=== PATIENT | male | born 1945 | race Caucasian/White ===

== ENCOUNTER 2024-12-07 16:05 | Emergency (ER) | payer MEDICARE, SELFPAY ==
[2024-12-07 16:54] VITALS: BP 141/78
--- NOTE | 2024-12-07 18:43 | ED.GENMED ---
History of Present Illness
General
Chief Complaint: Fall
Source: patient
Exam Limitations: none
Time Seen by Provider: 12/07/24 18:36
History of Present Illness
History of Present Illness:
See MDM
Past History
Past History
ED Past Medical History: HTN, Hypercholesterolemia, NIDDM and Other (UTI)
ED Past Surgical History: Orthopedic (Left hip replacement. Bilateral knee replacement, Back surgery)
Social History
Tobacco: Non-smoker
Alcohol: Occasional
Personal:
Living: alone
Phy Exam
Physical Exam
Physical Exam:
See MDM
Course
Orders/Labs/Results
Orders:
Orders
12/07/24 16:[address] [CT Head W/o Iv Contrast] Urgent
Comment:
Reason For Exam: fall hit head on dryer
Vital Signs
Initial and Last Documented VS:
Initial Vital Signs
Temp Pulse Resp BP Pulse Ox
98.9 F 80 18 141/78 98
12/07/24 16:54 12/07/24 16:54 12/07/24 16:54 12/07/24 16:54 12/07/24 16:54
Last Documented Vital Signs
Temp Pulse Resp BP Pulse Ox
98.9 F 80 18 141/78 98
12/07/24 16:54 12/07/24 16:54 12/07/24 16:54 12/07/24 16:54 12/07/24 16:54
Procedures
Laceration Closure
Right Anterior Lateral Eye brow:
Status of Wound: clean
Size of Wound in cm: 3
Description of Wound Edges: sharp
Preparation: cleaned with soap & water
Revision/Debridement: routine- no revision
Wound exploration: explored to base- no FB
Type of Closure: Dermabond-skin glue
MDM/Problems Addressed
Differential Diagnosis Includes:
HPI and [facility] Narrative:
79-year-old male presenting for evaluation of head injury. Patient was getting close out of the dryer. He lost his balance and fell forward hitting his head on the ground. He used his life alert necklace in his daughter came and found him on the
ground. He was sent in for evaluation. CT head was done prior to my evaluation indicating no acute bleed. On my exam, he is sitting in bed comfortably. He is a small superficial laceration above his right eyebrow. It was cleaned and Dermabond
was placed. He noted an abrasion to his right knee where he had a prior knee replacement. There is no tenderness on exam. He is moving without difficulty. I did offer an x-ray but indicated that it is not clinically relevant. Patient agrees and
declined the x-ray. He states his tetanus is up-to-date
Physical exam
General: Well appearing and non-toxic
HEENT: protecting airway. Superficial 3 cm laceration above right eyebrow. EOMI
Neck: supple
CV: No evidence of cyanosis
Resp: No accessory muscle use
Abd: Non-distended
Extremities: Small abrasion to anterior right knee without effusion. Range of motion intact
Neuro: alert
Psych: Normal affect
Skin: Intact
Problems Addressed including Acute and Chronic Conditions affecting care:
1. Head injury
Acuity: acute
Prognosis: stable
Details: CT head negative. Dermabond placed on superficial laceration
Differential Diagnosis (but not limited to): Laceration, abrasion, concussion, intracranial hemorrhage
Testing considered: Knee x-ray
Drug therapy (if applicable): OTC meds, please see d/c instruction regarding Rx drugs
Amount and/or Complexity of Data Reviewed
Clinical info obtained from: Patient and daughter
External data reviewed: N/A
Labs I independently reviewed (but not limited to): N/A
Radiology: The CT scan was personally and independently reviewed. In addition, official CT report reviewed.
Pulse Ox: not hypoxic
EKG independently reviewed: N/A
Youth Manager: N/A
Critical Care: N/A
Risk of Complication:
Social Determinants of health: Good social support
Discussed with other providers: N/A
Escalation of Care includes Admit/Obs: After being observed in the Emergency Department, pt stable for discharge.
Occasional wrong word or 'sound a like' substitutions may have occurred due to the inherent limitations of voice recognition software. Read the chart carefully and recognize, using context, where substitutions have occurred.
*Critical Care Note
Total Time (30-74mins, 75-104mins- exclusive of procedures): Not Applicable
ED Attending Note
-
Portions of this chart may have been created with voice recognition software.� Occasional wrong word or��sound alike� substitutions may have occurred due to the inherent limitations of voice recognition software.
Discharge Plan
Departure
Patient Disposition: Home (Routine Discharge)
Date of Disposition: 12/07/24
Time of Disposition: 18:44
Patient with high blood pressure during this ER visit?: No
Discharge Problem:
Head injury
Instructions: Laceration Repair With Glue (DC), Head Injury in Adults (DC)
Prescriptions:
No Action
multivitamin Tablet
1 tab PO DAILY
sertraline [Zoloft] 100 mg Tablet
150 mg PO DAILY
amlodipine [Norvasc] 5 mg Tablet
5 mg PO DAILY
allopurinol 100 mg Tablet
100 mg PO DAILY
pantoprazole [Protonix] 20 mg Tablet,Delayed Release (Dr/Ec)
20 mg PO DAILY
tamsulosin [Flomax] 0.4 mg Capsule
0.4 mg PO DAILY
metformin 1,000 mg Tablet
1,000 mg PO QPM
benazepril 20 mg Tablet
20 mg PO QPM
pravastatin 20 mg Tablet
20 mg PO QPM
nortriptyline 10 mg Capsule
20 mg PO QPM
finasteride 5 mg Tablet
5 mg PO QPM
pioglitazone 30 mg Tablet
30 mg PO QPM
melatonin 10 mg Tablet
10 mg PO HS
bacitracin 500 unit/gram ointment
1 applic topical QID 7 Days Qty: 30 0RF
Activity Restrictions/Additional Instructions:
Please return for any worsening symptoms.
You may return at any time if you have further concerns.
Please follow up with your doctor at the first available appointment, preferably this week.
Your wound was fixed with derma-branham. This is a special glue that holds a wound closed similar to stitches. This type of wound closure will eventually fall off by itself and does not need to be removed. You may wash the area very gently, but do not
scrub or pick at the glue. Watch for signs of infection: fever over 100.5', increasing pain, red streaks around wound, swelling, drainage of pus, or bad smell. If any of these happen, return to ED promptly. All wounds may scar, however you may
reduce the appearance of scarring by avoiding sun exposure to the scar and applying skin moisturizer with spf protection to the scar once the wound is healed.
Thank you for choosing [facility].
Interventions
Interventions:
*Risk Screen - Suicide Last Done: 12/07/24 16:54
*General Assessment Last Done: 12/07/24 16:54
*Neglect/Abuse Screening Last Done: 12/07/24 16:54
*ED- Fall Risk Assessment Last Done: 12/07/24 16:54
*ED COVID-19 Vaccine History Last Done: 12/07/24 16:54
Discharge Date and Time
Print Language: GERMAN
== END 2024-12-07 19:13 | disposition home or self-care (01) ==
LOC: EMR 16:05
PROVIDERS: EMERGENCY PHYSICIAN Student in an Organized Health Care Education/Training Program
DX: S09.90XA Unspecified injury of head, initial encounter (principal); W19.XXXA Unspecified fall, initial encounter; I10 Essential (primary) hypertension; E78.00 Pure hypercholesterolemia, unspecified; E11.9 Type 2 diabetes mellitus without complications; Z87.440 Personal history of urinary (tract) infections; Z96.642 Presence of left artificial hip joint; Z96.653 Presence of artificial knee joint, bilateral
CPT/HCPCS: 99284; 12013; 70450

== ENCOUNTER 2025-04-12 06:19 | Day surgery (SDC) | payer MEDICARE, SELFPAY ==
[2025-04-12 07:58] LABS: Glucose - Point of Care 260 mg/dl (70-99)
== END 2025-04-12 10:23 | disposition home or self-care (01) ==
LOC: GI 06:19
PROVIDERS: ATTENDING PHYSICIAN Internal Medicine Gastroenterology; FAMILY PHYSICIAN Family Medicine
DX: D12.2 Benign neoplasm of ascending colon (principal); D12.3 Benign neoplasm of transverse colon; R63.4 Abnormal weight loss; K57.30 Diverticulosis of large intestine without perforation or abscess without bleeding; D17.9 Benign lipomatous neoplasm, unspecified; K64.9 Unspecified hemorrhoids
CPT/HCPCS: 45385; 45380; 45381; 82962; 88305

== ENCOUNTER → 2025-05-10 07:37 | Outpatient (REF) | payer MEDICARE, SELFPAY | LOC: RAD 07:37 | PROVIDERS: ATTENDING PHYSICIAN Internal Medicine Gastroenterology; FAMILY PHYSICIAN Family Medicine | DX: R19.5 Other fecal abnormalities (principal) | CPT/HCPCS: 74177; Q9967 ==

== ENCOUNTER 2025-05-28 15:25 | Inpatient (IN) | payer MEDICARE, SELFPAY ==
[2025-05-28] VITALS (7 sets, daily range): BP systolic 95–163; BP diastolic 64–92; BMI 34.3
[2025-05-28 11:15] LABS: Hematocrit 37.5 % (39.0-52.0); Hemoglobin 11.9 g/dL (13.0-18.0); Mean Corp Hgb Conc. 31.7 g/dL (33.0-37.0); Mean Corpuscular Volume 97.7 fL (80.0-94.0); Nucleated Red Blood Cells % 0 % (-); Platelet Count 248 10^3/uL (130-400); Red Cell Dist. Width 14.1 % (11.5-14.5)
[2025-05-28 11:28] LABS: INR 1.04; PT 13.9 Sec (11.4-14.6)
[2025-05-28 11:29] LABS: APTT 36.2 Sec (23.4-35.0)
[2025-05-28 11:49] LABS: ALT (SGPT) 22 U/L (0-50); AST (SGOT) 24 U/L (17-59); Albumin 4.2 g/dl (3.5-5.0); Alkaline Phosphatase 80 U/L (38-126); Blood Urea Nitrogen 22 mg/dl (9-20); Calcium 10.0 mg/dl (8.4-10.2); Carbon Dioxide 22 mmol/L (22-30); Chloride 106 mmol/L (98-107); Glucose 315 mg/dl (70-99); Potassium 5.2 mmol/L (3.5-5.1); Sodium 136 mmol/L (135-145); Total Protein 7.2 g/dl (6.3-8.2); eGFR > 60.00
--- NOTE | 2025-05-28 12:13 | ED.GENMED ---
History of Present Illness
General
Chief Complaint: Rectal Bleeding
Source: patient
Exam Limitations: none
Time Seen by Provider: 05/28/25 11:45
Nursing documentation reviewed up to this point in time: agreed with
History of Present Illness
History of Present Illness:
Patient presents to ED for evaluation after multiple episodes of dark red bowel movements over the past 24 hours. Denies fever or chills. Denies abdominal pain. Denies nausea or vomiting. Denies trauma. Patient does not take any blood thinning
medications daily. However, patient does take Advil intermittently secondary to arthritis. Denies previous history of similar symptoms. Denies dizziness or weakness. Denies shortness of breath.
Past History
Past History
ED Past Medical History: HTN, Hypercholesterolemia, NIDDM and Other (UTI)
ED Past Surgical History: Orthopedic (Left hip replacement. Bilateral knee replacement, Back surgery)
Social History
Tobacco: Non-smoker
Alcohol: Occasional
Personal:
Living: alone
Review of Systems
Review of Systems
Allergies reviewed?: Yes
All Other Systems: ROS reviewed and negative except as documented in HPI and ROS
Constitutional: Reports no symptoms; Denies fever
Respiratory: Reports no symptoms
Cardiac: Reports no symptoms
ABD/GI: Reports bloody stools; Denies abdominal pain or vomiting
Musculoskeletal: Reports no symptoms
Skin: Reports no symptoms
Neurological: Reports no symptoms
Phy Exam
Physical Exam
Physical Exam:
Physical Exam
General: no apparent distress, not acutely ill. afebrile
Head: nc/at. eomi
Neck: supple. no meningeal signs.
Heart: s1/s2 regular rate and rhythm
Lungs: no acute respiratory distress. clear bilaterally
Abdomen: normal bowel sounds. not tender. Rectal exam: maroon stool, grossly heme positive
Neuro: alert and oriented. no focal neurological deficits
Skin: no rash
Psychiatric: well kept. interactive and cooperative
Extremities: no edema. no calf tenderness.
Course
Orders/Labs/Results
Orders:
Orders
05/28/25 Lunch
Clear Liquid
Clear Liquids: No red liquids
Comment: small amounts of liquids
Clear Liquid
05/28/25 10:44
Cardiac Monitoring- Treatment ONCE
IV Insert/Care/Rem.- Treatment PRN
O2 Therapy [RESP] Urgent
Titrate/Wean O2 to maintain O2 sat greater than (%): 93
Special Instructions: MAINTAIN CONTINOUS O2 SATS > OR = 93%
Pulse Ox/spot Check [RESP] Urgent
Quantity: 1
Special Instructions: ON ROOM AIR
05/28/25 10:59
Type+Screen Urgent
Complete Blood Count/With Diff Urgent
Comprehensive Metabolic Panel Urgent
PTT Urgent
Prothrombin Time Urgent
05/28/25 12:22
0.9% Sodium Chloride 500 ml [Nss] 500 ml IV BOLUS
Pantoprazole [Protonix IV] 40 mg IV NOW STA
05/28/25 14:35
Code Status As Directed
Resuscitation Status: Limited DNR
Limited DNR: -No intubation
Bisacodyl [Dulcolax] 10 mg RECTAL [id number] PRN
Docusate W/Senna [Senokot-S] 1 tablet PO BIDPRN PRN
Polyethylene Glycol Powder [Miralax] 17 grams PO DAILYPRN PRN
Activity As Directed
Activity Level: Out of Bed-Early Mobility
Vital Signs As Directed
Frequency: Per unit guidelines
05/28/25 14:36
Pneumatic Compression Sleeves As Directed
Type: Knee high
DX Deep Vein Thrombosis Video Routine
05/28/25 14:38
Admit Patient As Directed
Co-Sign Provider:
Level of Care: Inpatient admission
Assign to:: Medical/Surgical
Physician / Group: Hospitalists
Diagnosis: rectal bleeding
Reason for Hospitalization: GI bleed
Expected length of stay greater than two midnights?: Yes
ELOS- Estimated Length of Stay in days: 4
I certify the patient meets the requirements for IP care: Yes
Acetaminophen [Tylenol] 650 mg PO Q4HPRN PRN
05/28/25 14:41
PRN Pain Medication Management As Directed
May give lesser potent ordered pain med per pt: Yes
preference::
Protocol:: Medication orders for pain may be administered in a
manner that supports deferring to patient preference
when the pt is:
- Requesting an ordered lesser potent pain medication.
Least to most potent pain medications are defined
as: acetaminophen < NSAID < tramadol < opioids
(morphine, oxycodone, hydromorphone).
- Requesting a lesser dose of the same medication IF
ORDERED.
- Requesting a less intrusive route of administration
if both routes are prescribed by the provider (PO <
IV).
05/28/25 20:00
0.9% Sodium Chloride [Nss (Preservative Free)] 10 ml IV BID
Pantoprazole [Protonix IV] 40 mg IV BID
05/29/25 Breakfast
NPO
Allow oral meds: Yes
Allow clear liquids: 4hrs prior to procedure
NPO for procedure after (time): midnight for GI Procedure tomorrow
Comment: may have unrestricted clear liquids up to 4 hrs prior to scheduled proc
Basic Metabolic Panel IN AM
Complete Blood Count/No Diff IN AM
05/29/25 08:00
Surgical Procedure As Directed
Surgical Procedure: EGD 05/29
Abnormal Lab Results
05/28/25
10:59
RBC 3.84 L 10^6/uL
(4.70-6.10)
Hgb 11.9 L g/dL
(13.0-18.0)
Hct 37.5 L %
(39.0-52.0)
MCV 97.7 H fL
(80.0-94.0)
MCHC 31.7 L g/dL
(33.0-37.0)
Neutrophils % 75.4 H %
(42.2-75.2)
Lymphocytes % 14.8 L %
(20.5-51.1)
APTT 36.2 H Sec
(23.4-35.0)
Potassium 5.2 H mmol/L
(3.5-5.1)
BUN 22 H mg/dl
(9-20)
Glucose 315 H mg/dl
(70-99)
05/28/25 10:59
05/28/25 10:59
Vital Signs
Initial and Last Documented VS:
Initial Vital Signs
Temp Pulse Resp BP Pulse Ox
98.3 F 93 18 163/92 99
05/28/25 10:40 05/28/25 10:40 05/28/25 10:40 05/28/25 10:40 05/28/25 10:40
Last Documented Vital Signs
Temp Pulse Resp BP Pulse Ox
98.3 F 74 17 95/83 98
05/28/25 10:40 05/28/25 13:15 05/28/25 13:15 05/28/25 13:00 05/28/25 12:15
MDM/Problems Addressed
MDM/Problems Addressed:
H/H noted. Protonix given.
outbound call center representative GI physician () notified via [employer]
Transfusion consent on the chart
*Pulse Oximetry
SaO2: 99
Oxygen Mode of Delivery: Room air
Patient hypoxic: no
*Critical Care Note
Total Time (30-74mins, 75-104mins- exclusive of procedures): Not Applicable
ED Attending Note
-
Portions of this chart may have been created with voice recognition software.� Occasional wrong word or��sound alike� substitutions may have occurred due to the inherent limitations of voice recognition software.
Discharge Plan
Departure
Patient Disposition: Admit
Date of Disposition: 05/28/25
Time of Disposition: 12:25
Presentation/result/management discussed w/ accepting MD/DO: Hospitalist
Discharge Problem:
GI bleed
Interventions
Interventions:
*Risk Screen - Suicide Last Done: 05/28/25 10:40
*General Assessment Last Done: 05/28/25 10:40
*Neglect/Abuse Screening Last Done: 05/28/25 10:40
*ED- Fall Risk Assessment Last Done: 05/28/25 10:40
*ED COVID-19 Vaccine History Last Done: 05/28/25 10:40
*ED Influenza Vaccine History Last Done: 05/28/25 10:40
VA-Qstabb-Pabpblcaez Assessment Last Done: 05/28/25 12:15
ED- Cardiac Assessment Last Done: 05/28/25 12:15
ED- Pulmonary Assessment Last Done: 05/28/25 12:15
[2025-05-28] MEDS: NSS 500 IV (12:41)
[2025-05-28] MEDS: PROTONIX IV 40 MG IV ×2 (12:41→19:58)
--- NOTE | 2025-05-28 13:03 | CON.GI ---
Addendum entered and electronically signed by Tsering Alston DO 05/28/25 16:06:
The patient was seen and examined by me independently in collaboration with the nurse practitioner.
Past medical history/social history/medications/allergies/family history reviewed.
Lab data and imaging data reviewed.
79 y.o. with pmhx PUD, DM2, HTN, HLD, anxiety, gout, and recent workup as an outpatient for diarrhea with Dr. Aldana admitted for maroon colored stool. He had a colonoscopy in april with findings as per below, notable for 18 mm polyp removed
piecemeal in the transverse colon. Full diarrhea workup completed, just completed SIBO breath test. No prior GI bleeding in the past, has occasionally had bright red blood with wiping only. No blood thinners. He takes aleve daily for arthritic
pain-- 1 tablet for 'many years.'
Hemoglobin on arrival 11.9, BUN 22, appears to be at baseline. He is hemodynamically stable.
C/f UGIB vs. small bowel vs. colonic. Recent colonoscopy with no evidence of AVMs but pandiverticulosis, diverticular bleeding is high on the differential as well.
Recommend ruling out upper GI source. If no source found would likely recommend monitoring hemoglobin/for recurrence of bleeding as if diverticular these are self-limiting and usually resolve on their own.
PPI IV BID
Needs back of NSAIDs, tylenol okay
Trend hgb and stools
NPO for EGD in AM, okay for clear liquids now
Original Note:
Consultation
-
Date/Time Consultation Requested: 05/28/25 1215
Date/Time Consultation Performed: 05/28/25 1300
Requesting Provider: Ramana Mcghee MD
Performing Provider: LANDEN Lopez, Jacquelyn Alston DO
Reason for Consultation: GI bleed
Medical History
Chief Complaint / HPI
Chief Complaint: dark stools
History of Present Illness:
Pt is a 79yo presents with hx PUD, NIDDM, HTN, hyperlipidemia, anxiety, gout, UTI, BPH, renal stones, left hip replacement, b/l TKR, back surgery with recent work up for chronic diarrhea with Dr. Aldana. He completed recent colonoscopy with
diverticulosis, small lipoma hepatic flexure, multiple TA polyps resected including as 10mm polyp at appendiceal orifice and 18 mm polyp TC removed via piecemeal and, normal mucosa, hemorrhoids. CT enterography also completed with moderate stool
colon with liquid and fat attenuation in stool can be seen with malabsorption. severe fatty infiltrate, cholelithiasis, renals lesion mass not excluded, and enlarged prostate. He now presents with onset of rectal bleeding. In ER rectal exam with
maroon stool.
In review with patient, he admits to chronic loose stools. He was have several days of no stools then sense of urgency and difficulty with going out at times. He will take Imodium that will help. He has seen red blood in past with wiping but
now with dark red stools since day prior to admission. He admits to taking Aleve daily arthritic hand pain for years. He denies odynophagia, dysphagia, GERD, nausea, vomiting, abdominal pain, constipation, but admits to some wt loss with eating
less over time. Pt denies any anticoagulation use. On admission hbg 11.9 with BUN 22 at baseline.
OP testing-- colon, CTE as above with elevated fecal ky 279, SIBO testing just completed per pt , abd X ray non obstructive pattern, TTG <2, Immunoglob A normal, giardia neg other testing pending
Past Medical History
Past Medical History: HTN, Hypercholesterolemia, NIDDM, Psychiatric (anxiety ) and Other (UTI, obesity, BPH, kidney stones, PUD )
Past Surgical History: Orthopedic (left hip replacement, b/l TKR, back surgery, carpel tunnel surgery, cataract surgery), Urological (bladder stone removal ) and Other (pilonidal cyst excision)
Social History
Tobacco: Non-Smoker
Alcohol: None
Drug: None
Personal:
Living: Alone
Employment: Retired
Family History
Family History: Other (no family hx GI issues )
Allergies / Home Medications
Allergy/AdvReac Type Severity Reaction Status Date / Time
aspirin (From Percodan) Allergy Intermediate able to Verified 05/28/25 10:38
take
aspirin
oxycodone (From Percodan) Allergy Intermediate sweating,became Verified 05/28/25 10:38
pale
�Medication �Instructions �Recorded
allopurinol 100 mg tablet 100 mg PO DAILY Gout 02/20/22
amlodipine 5 mg tablet (Norvasc) 5 mg PO DAILY Blood pressure 02/20/22
benazepril 20 mg tablet 20 mg PO QPM Blood pressure 02/20/22
metformin 1,000 mg tablet 1,000 mg PO QPM Diabetes 02/20/22
multivitamin 1 tab PO DAILY Supplement 02/20/22
pantoprazole 20 mg tablet,delayed 20 mg PO DAILY Gastrointestinal 02/20/22
release (Protonix) issue
pravastatin 20 mg tablet 20 mg PO QPM High cholesterol 02/20/22
tamsulosin 0.4 mg capsule (Flomax) 0.4 mg PO DAILY Urinary issue 02/20/22
finasteride 5 mg tablet 5 mg PO QPM 04/14/23
pioglitazone 15 mg tablet 15 mg PO QPM 05/28/25
Review of Systems
-
History Source: Patient
Constitutional: Reports No Symptoms
EENT: Reports No Symptoms
Respiratory: Reports No Symptoms
Cardiac: Reports No Symptoms
Abdomen/GI: Reports Diarrhea and Bloody Stools (maroon stools )
: Reports No Symptoms
Musculoskeletal: Reports Joint Pain
Skin: Reports No Symptoms
Neurological: Reports Weakness
Endocrine: Reports No Symptoms
Hematologic/Lymphatic: Reports Bleeding
Vital Signs
Temp Pulse Resp BP Pulse Ox
98.3 F 83 15 163/92 98
05/28/25 10:40 05/28/25 12:15 05/28/25 12:15 05/28/25 10:40 05/28/25 12:15
Physical Exam
Exam
General: Well Developed, Well Nourished and No Apparent Distress
HEENT: Normocephalic and Anicteric
Respiratory: Clear
Cardiac: Regular Rhythm
GI: Soft, Non Tender and Non Distended
Rectal: Red (maroon in ER) and Hem Positive
Musculoskeletal: No Clubbing and No Cyanosis
Skin: Warm and Dry
Neuro: Awake
Psych: Calm
Results
WBC 7.9 10^3/uL (4.8-10.8) 05/28/25 10:59
Hgb 11.9 g/dL (13.0-18.0) L 05/28/25 10:59
Hct 37.5 % (39.0-52.0) L 05/28/25 10:59
MCV 97.7 fL (80.0-94.0) H 05/28/25 10:59
Plt Count 248 10^3/uL (130-400) 05/28/25 10:59
Absolute Neuts (auto) 6.0 10^3/uL (1.4-6.5) 05/28/25 10:59
PT 13.9 Sec (11.4-14.6) 05/28/25 10:59
INR 1.04 05/28/25 10:59
APTT 36.2 Sec (23.4-35.0) H 05/28/25 10:59
Sodium 136 mmol/L (135-145) 05/28/25 10:59
Potassium 5.2 mmol/L (3.5-5.1) H 05/28/25 10:59
Chloride 106 mmol/L (98-107) 05/28/25 10:59
Carbon Dioxide 22 mmol/L (22-30) 05/28/25 10:59
BUN 22 mg/dl (9-20) H 05/28/25 10:59
Creatinine 1.0 mg/dL (0.7-1.3) 05/28/25 10:59
Calcium 10.0 mg/dl (8.4-10.2) 05/28/25 10:59
Total Bilirubin 0.5 mg/dl (0.2-1.3) 05/28/25 10:59
AST 24 U/L (17-59) 05/28/25 10:59
ALT 22 U/L (0-50) 05/28/25 10:59
Alkaline Phosphatase 80 U/L (38-126) 05/28/25 10:59
Diagnostic Image Results:
05/10/25 CT enterography of the abdomen and pelvis
IMPRESSION:
1. No bowel obstruction. No abnormal focal inflammatory process of the bowel identified. Moderate volume of stool throughout the colon. There is liquid stool and fat attenuation stool within the colon, findings that can be seen in association with
malabsorption. There is diverticulosis without diverticulitis.
2. Severe hepatic fatty infiltration.
3. Cholelithiasis.
4. Bilateral nonobstructive nephrolithiasis.
5. Left renal 1.2 cm rounded lesion which shows higher than simple fluid attenuation as detailed above. Possible hyperdense/hemorrhagic cyst. Small solid mass not definitively excluded. Could be further evaluated with follow-up renal ultrasound.
6. Enlarged prostate gland with nodular projection along the undersurface of the urinary bladder.
Prior GI Procedures:
EGD: hx PUD in past years ago
Colonoscopy:
04/12/25 colonoscopy protano - The examined portion of the ileum was normal.
- Diverticulosis in the entire examined colon.
- Small lipoma at the hepatic flexure.
- One 2 mm polyp at the hepatic flexure, removed with a jumbo cold
forceps. Resected and retrieved.
- Seven 4 to 8 mm polyps in the transverse colon, in the ascending
colon and at the hepatic flexure, removed with a cold snare.
Complete resection. Partial retrieval.
- Normal mucosa in the entire examined colon. Biopsied.
- One 10 mm polyp at the appendiceal orifice, removed piecemeal
using a cold snare. Complete resection. Partial retrieval.
- One 18 mm polyp in the transverse colon, removed piecemeal using
a cold snare. Resected and retrieved. Tattooed.
- Hemorrhoids.
Assessment / Plan
-
Pt is a 79yo presents with hx PUD, NIDDM, HTN, hyperlipidemia, anxiety, gout, UTI, BPH, renal stones, left hip replacement, b/l TKR, back surgery with recent work up for chronic diarrhea with Dr. Aldana. He completed recent colonoscopy with
diverticulosis, small lipoma hepatic flexure, multiple TA polyps resected including as 10mm polyp at appendiceal orifice and 18 mm polyp TC removed via piecemeal and, normal mucosa, hemorrhoids. CT enterography also completed with moderate stool
colon with liquid and fat attenuation in stool can be seen with malabsorption. severe fatty infiltrate, cholelithiasis, renals lesion mass not excluded, and enlarged prostate. He now presents with onset of rectal bleeding. In ER rectal exam with
maroon stool. In review with patient, he admits to chronic loose stools. He was have several days of no stools then sense of urgency and difficulty with going out at times. He will take Imodium that will help. He has seen red blood in past with
wiping but now with dark red stools since day prior to admission. He admits to taking Aleve daily arthritic hand pain for years. He denies odynophagia, dysphagia, GERD, nausea, vomiting, abdominal pain, constipation, but admits to some wt loss
with eating less over time. Pt denies any anticoagulation use. On admission hbg 11.9 with BUN 22 at baseline.
OP testing-- colon, CTE as above with elevated fecal ky 279, SIBO testing just completed per pt , abd X ray non obstructive pattern, TTG <2, Immunoglob A normal, giardia neg -- other testing pending
-concern for GI bleeding with maroon stool
-diarrhea with current outpatient work up
-daily NSAID use
-hx PUD
-elevated fecal ky to 279
other med problems:
-NIDDM
-HTN
- hyperlipidemia
- anxiety
-gou/arthritis
-UTI
-BPH
- renal stones
-left hip replacement
-b/l TKR
-back surgery
PLAN:
etiology of GI bleeding related to upper, lower vs SB source PUD with NSAID use, ectasia, vs other
plan for EGD 05/29
trend hbg and stools
ok for clear
PPI BID
NSAID avoidance
OP follow up with Dr. Aldana for diarrhea work up dueo follow up 06/26/25 at 9AM
-
-
Thank you for consultation and allowing me to participate in the patient's care. Please call the analytics consultant GI physician during the after hours with any questions or concerns.
--- NOTE | 2025-05-28 13:13 | HPS.HSE ---
Family Physician
-
Family Physician: Thong Harvey
Chief Complaint
-
Rectal bleeding
History of Present Illness
Mr. Bergeron is a 79yo presents with distant Hx of PUD, NIDDM, HTN, hyperlipidemia, anxiety, gout, UTI, BPH, renal stones, left hip replacement, b/l TKR, back surgery, spinal stimulator with recent work up for chronic diarrhea with Dr. Aldana
presenting with rectal bleeding that started last night 05/27. He reports no inciting event that he can remember btvgmy-spulnb-yphsbpy stools last night. He went to sleep hoping that it might go away but had another episode of maroon-colored
stools in the morning. He has had a several month long history of diarrhea for which he was seen by GI doctor. He has had multiple episodes of incontinence over the past 2 months and has used Imodium when going out in public to reduce the
episodes. The Imodium has been helping. He had a colonoscopy 1 month ago that found several polyps but were ultimately benign. He has also had a distant EGD which showed a healing ulcer. He does report taking NSAIDs daily without fluid due to
arthritis of the hands. He has never had any issues with NSAIDs in the past. He reports occasional alcohol use having about 2 drinks per month. Outpatient GI testing has not yielded any clear diagnosis for his chronic diarrhea.
Medical History
Past Medical History
Past Medical History: Reports HTN, Hypercholesterolemia, NIDDM and Other (BPH, gout, distant history of peptic ulcer disease, chronic diarrhea)
Past Surgical History: Reports Orthopedic (Bilateral TKR's, left hip replacement, laminectomy, carpal tunnel) and Other (Spinal stimulator, cataracts)
Social History
Tobacco: Non-smoker
Alcohol: Occasional (Twice per month)
Drug: None
Personal:
Living: Alone (With cat)
Family History
Family History: Not pertinent
Allergies / Home Medications
Allergies reflects when Allergies were last updated in [facility].
Home Medications with original date entered in [facility]
Allergy/Medication List:
Allergies
Allergy/AdvReac Type Severity Reaction Status Date / Time
aspirin (From Percodan) Allergy Intermediate able to Verified 05/28/25 10:38
take
aspirin
oxycodone (From Percodan) Allergy Intermediate sweating,became Verified 05/28/25 10:38
pale
Home Medications
allopurinol 100 mg tablet 100 mg PO DAILY Gout 02/20/22
amlodipine 5 mg tablet (Norvasc) 5 mg PO DAILY Blood pressure 02/20/22
benazepril 20 mg tablet 20 mg PO QPM Blood pressure 02/20/22
metformin 1,000 mg tablet 1,000 mg PO QPM Diabetes 02/20/22
multivitamin 1 tab PO DAILY Supplement 02/20/22
pantoprazole 20 mg tablet,delayed release (Protonix) 20 mg PO DAILY Gastrointestinal issue 02/20/22
pravastatin 20 mg tablet 20 mg PO QPM High cholesterol 02/20/22
tamsulosin 0.4 mg capsule (Flomax) 0.4 mg PO DAILY Urinary issue 02/20/22
finasteride 5 mg tablet 5 mg PO QPM 04/14/23
pioglitazone 15 mg tablet 15 mg PO QPM 05/28/25
Review of Systems
-
History Source: Patient
Constitutional: Reports No Symptoms; Denies Fever or Weight Loss
EENT: Reports No Symptoms; Denies Sore Throat or Runny Nose
Respiratory: Reports No Symptoms; Denies Cough or Trouble Breathing
Cardiac: Reports No Symptoms; Denies Chest Pain or Palpitations
Abdomen/GI: Reports Diarrhea and Bloody Stools; Denies Abdominal Pain, Nausea or Vomiting
Musculoskeletal: Reports Joint Pain (Hands)
Neurological: Reports No Symptoms; Denies Dizzy or Headache
Physical Exam
Vital Signs
Vital Signs
Temp Pulse Resp BP Pulse Ox
98.3 F 83 15 163/92 98
05/28/25 10:40 05/28/25 12:15 05/28/25 12:15 05/28/25 10:40 05/28/25 12:15
Physical Exam
General: Well Developed, Well Nourished, No Apparent Distress, Comfortable and Obese; No Pain or Fever
HEENT: NormoCephalic, Anicteric and Atraumatic
Respiratory: Clear and Non Labored Respirations; No Wheezes or Crackles
Cardiac: S1/S2 and Regular Rhythm; No Murmur or Peripheral Edema
GI: Soft, Non Tender, Non Distended and Normal Bowel Sounds
Genito-urinary: Deferred by me
Skin: Warm and Dry; No Rash
Neuro: Awake, Alert and Oriented
Laboratory Results
-
05/28/25 10:59
05/28/25 10:59
Laboratory Results
PT 13.9 Sec (11.4-14.6) 05/28/25 10:59
INR 1.04 05/28/25 10:59
APTT 36.2 Sec (23.4-35.0) H 05/28/25 10:59
Total Bilirubin 0.5 mg/dl (0.2-1.3) 05/28/25 10:59
AST 24 U/L (17-59) 05/28/25 10:59
ALT 22 U/L (0-50) 05/28/25 10:59
Alkaline Phosphatase 80 U/L (38-126) 05/28/25 10:59
Impression/Plan
-
IMPRESSION:
Pt is a 79yo presents with hx PUD, NIDDM, HTN, hyperlipidemia, anxiety, gout, BPH, renal stones, left hip replacement, b/l TKR, back surgery with recent work up for chronic diarrhea with Dr. Aldana presenting with rectal bleeding. Patient was
admitted for evaluation of GI bleed.
PLAN:
#GI bleed
Upper versus lower GI bleed
History of PUD
Chronic NSAID use
elevated fecal ky to 279
DDx may include inflammatory conditions, ectasia, gastritis, PUD
Recent [place] negative less likely malignancy
OP follow up with Dr. Aldana for diarrhea work up follow up 06/26/25 at 9AM
-Type and cross
-Trend hemoglobin
GI consult
Appreciate GI recs
-plan for EGD 05/29
-trend hbg and stools
-ok for clear
-PPI BID
-NSAID avoidance
#NIDDM
Continue metformin
Continue pioglitazone
Low ISS
#Essential HTN
Continue amlodipine
Continue Benzepril
#hyperlipidemia
Continue pravastatin
#gout
Continue allopurinol
#BPH
Continue tamsulosin
DVT prophylaxis: SCDs
CODE STATUS: Limited DNR
--- NOTE | 2025-05-28 14:54 | W.PN.UPDATE ---
Update Note
Progress Note Update
Seen and examined the patient. Agree with plan set forth by the resident. See changes in my documentation. See H and P
79 y/o male with rectal bleed. No abdominal pain no dizziness. Patient ate some chocolate cookies yesterday initially he thought that was the reason but he felt that they were more brown and bloody looking
On examination awake alert oriented not in acute distress
Cardiovascular system S1-S2 appreciated
Systolic murmur at apex
Chest clear to auscultation
Abdomen soft and nontender
No pedal edema
# Rectal bleeding
Lower versus upper
Follow H&H
Type and screen
Stop NSAIDs
Patient takes ibuprofen on a regular basis rule out gastritis/peptic ulcer disease
Recent colonoscopy noted
Needs EGD
GI evaluation for above
PPI drip
# Hypertension-hold amlodipine and BenzePrO given blood pressure running on the low side
# Diabetes-hold metformin and pioglitazone while n.p.o. Accu-Cheks and sliding scale coverage
# Enlarged prostate-continue finasteride, Flomax
# Gout-continue allopurinol
# Hyperlipidemia-continue statin
# History of nephrolithiasis
# History of laminectomy
# History of migraines
# Sleep apnea-not on PAP machine at night as outpatient
# Ex-smoker
Part of this note was created using voice recognition system. Occasional wrong word or��sound alike� substitutions may have inadvertently occurred due to the inherent limitations of voice recognition software. If noted kindly bring it to my
attention for correction.
--- NOTE | 2025-05-28 14:58 | CM ---
CM reviewed chart and spoke with patient and son-in-law : Serena's at ED bedside
IA completed
Lives in a townhome alone [address] Independent, driving
ambulates with a cane inside and RW outside
DME cane, RW and shower chair
PCP Dr. Thong Harvey
RX plan yes
Pharmacy [facility] in [place]
Hx of VN but does not remember name
hx of [facility] : did like the stay
DCP is mostly likely home vs home with [facility] after w/u
Dtr or LUIS ALFREDO able to provide transportation
CM will continue to follow up for dcp needs
[2025-05-28 17:06] LABS: Glucose - Point of Care 232 mg/dl (70-99)
[2025-05-28] MEDS: GLUCOPHAGE 1000 MG PO (18:05)
[2025-05-28] MEDS: PRAVACHOL 20 MG PO (18:05)
[2025-05-28] MEDS: ZYLOPRIM 100 MG PO (18:05)
[2025-05-28] MEDS: PROSCAR 5 MG PO (18:05)
[2025-05-28] MEDS: ZESTRIL 20 MG PO (18:06)
[2025-05-28] MEDS: FLOMAX 0.4 MG PO (18:06)
[2025-05-28] MEDS: ACTOS 15 MG PO (18:06)
[2025-05-28] MEDS: NORVASC 5 MG PO (18:06)
[2025-05-28] MEDS: NOVOLOG FLEXPEN-LOW RESISTANCE 2 UNITS SC (18:19)
[2025-05-28] MEDS: NSS (PRESERVATIVE FREE) 10 ML IV (19:58)
[2025-05-28 21:09] LABS: Glucose - Point of Care 214 mg/dl (70-99)
[2025-05-28 21:22] LABS: Hematocrit 34.7 % (39.0-52.0); Hemoglobin 11.0 g/dL (13.0-18.0); Mean Corp Hgb Conc. 31.7 g/dL (33.0-37.0); Mean Corpuscular Volume 97.7 fL (80.0-94.0); Platelet Count 227 10^3/uL (130-400); Red Cell Dist. Width 13.9 % (11.5-14.5)
[2025-05-29 00:48] LABS: Glucose - Point of Care 217 mg/dl (70-99)
--- NOTE | 2025-05-29 02:28 | DOWNTIME ---
There was a [employer] Downtime on 05/29/2025 from 0100 to 05/29/2025 at 0215. Downtime documentation of patient's care, including medication administrations, has been reconciled in the electronic record per guidelines. Refer to the
patient's paper chart under the miscellaneous tab to see printed paper medication records and downtime forms.
[2025-05-29 06:10] LABS: Glucose - Point of Care 257 mg/dl (70-99)
[2025-05-29 07:35] LABS: Hematocrit 33.4 % (39.0-52.0); Hemoglobin 10.6 g/dL (13.0-18.0); Mean Corp Hgb Conc. 31.7 g/dL (33.0-37.0); Mean Corpuscular Volume 97.9 fL (80.0-94.0); Platelet Count 224 10^3/uL (130-400); Red Cell Dist. Width 14.1 % (11.5-14.5)
[2025-05-29] MEDS: NSS (PRESERVATIVE FREE) 10 ML IV (07:43)
[2025-05-29] MEDS: PROTONIX IV 40 MG IV (07:49)
[2025-05-29] MEDS: NORVASC 5 MG PO (07:50)
[2025-05-29] MEDS: ZYLOPRIM 100 MG PO (07:50)
[2025-05-29] MEDS: FLOMAX 0.4 MG PO (07:50)
[2025-05-29] MEDS: NOVOLOG FLEXPEN-LOW RESISTANCE SC ×2 (07:57→16:54)
[2025-05-29 07:58] LABS: Glucose - Point of Care 259 mg/dl (70-99)
[2025-05-29] MEDS: GLUCOPHAGE 1000 MG PO ×2 (07:58→16:46)
[2025-05-29 08:00] VITALS: BP 151/78
[2025-05-29 08:12] LABS: Blood Urea Nitrogen 16 mg/dl (9-20); Calcium 8.7 mg/dl (8.4-10.2); Carbon Dioxide 25 mmol/L (22-30); Chloride 108 mmol/L (98-107); Estimated Creatinine Clearance 70 ml/min; Glucose 239 mg/dl (70-99); Potassium 4.6 mmol/L (3.5-5.1); Sodium 139 mmol/L (135-145); eGFR > 60.00
[2025-05-29 08:39] LABS: Glycohemoglobin (HgbA1c) 10.2 % (4.0-5.6)
--- NOTE | 2025-05-29 09:40 | W.PN.HOSP.TC ---
Addendum entered and electronically signed by Jong Corey MD 05/29/25 15:58:
Spoke to .
He was supposed to get a SIBO breath test and go on Xifaxan
Pt says he has to pay for it and he cannot afford it. Dr. Aldana looking into it.
Patient also aware that he if he continues to have bleeding he may need a capsule study as outpatient
Total time spent for discharge more than 30 minutes
Addendum entered and electronically signed by Jong Corey MD 05/29/25 15:34:
Seen and examined the patient independently. Agree with plan of care formulated by the resident. See changes in my documentation
Patient was feeling well. Patient was seen earlier. Late documentation
Son was at bedside
He did not have any further complaints
Exam was unremarkable
EGD Z-line regular. Small hiatal hernia. Erythematous mucosa in the antrum and gastric body. A few gastric polyps. Normal duodenum.
No evidence of any bleeding
Patient recently had a colonoscopy also
Hemoglobin is stable
Blood sugars are elevated with hemoglobin A1c of 10.3
Patient stated that he has no intentions to watch diet. He states that he would like to eat what he wants to eat since he is 79. He does not want to live any longer as he sees older patients go to fpc and he does not want that. His
mother lived to 89 and states that that is not as goal.
He respectfully declined insulin
I discussed with him the rationale behind tight control of diabetes infections, kidney and eye changes all discussed. Patient has a good understanding of all this.
He is agreeable to increasing pioglitazone to 30 mg daily
He also has been suffering from diarrhea. We discussed about possibly changing metformin if no other reasons found for his diarrhea.
I have also sent a message for his outpatient GI doctor to discuss this further. We will send a copy of discharge summary dictation to patient's PCP
Discussed all this with patient's son at bedside also
More than 30 minutes spent in discharge including
Final examination of the patient
Summarizing hospital stay
Instructions for continuing care to all relevant caregivers
Preparation of discharge records, prescriptions, and referral forms
Original Note:
Today's Communication/Plan
-
Increase pioglitazone to 30 mg
Patient's hemoglobin stable
Medically stable for discharge
Assessment / Plan
Assessment / Plan
IMPRESSION:
Pt is a 79yo presents with hx PUD, NIDDM, HTN, hyperlipidemia, anxiety, gout, BPH, renal stones, left hip replacement, b/l TKR, back surgery with recent work up for chronic diarrhea with Dr. Aldana presenting with rectal bleeding. Patient was
admitted for evaluation of GI bleed.
PLAN:
#GI bleed
Stable
Upper versus lower GI bleed
History of PUD
Chronic NSAID use
elevated fecal yk to 279
DDx may include inflammatory conditions, ectasia, gastritis, PUD
Recent [place] negative less likely malignancy
OP follow up with Dr. Aldana for diarrhea work up follow up 06/26/25 at 9AM
-Trend hemoglobin, stable
GI consult
Appreciate GI recs
-EGD 05/29
-Patchy mildly erythematous mucosa without bleeding was found in
the gastric antrum and in the gastric body.
- A few small sessile polyps with no bleeding and no stigmata of
recent bleeding were found in the gastric fundus and in the gastric
body.
- Resume regular diet today.
- Hgb stable without signs of recurrent bleeding. Okay for d/c from
my perspective with outpatient f/u with Dr. Aldana. Possible small
bowel vs. colonic bleed and recent colonoscopy.
- Change to PO pantoprazole 40mg daily x4 weeks
-NSAID avoidance
#NIDDM
Continue metformin
Increase pioglitazone to 30 mg
Low ISS
#Essential HTN
Continue amlodipine
Continue Benzepril
#hyperlipidemia
Continue pravastatin
#gout
Continue allopurinol
#BPH
Continue tamsulosin
Anticipated Discharge: Today
Subjective/Interval History
-
Patient was seen at bedside. He reports that he did not sleep well but otherwise had no issues. Reported no abdominal pain fever chills no maroon-colored stools no nausea or vomiting. Discussed with patient about diabetes, he is aware that he has
a high A1c but is on likely to make lifestyle changes. Patient is amenable to medication changes. Date of Service: May 29, 2025
Objective Data
-
Labs:
Laboratory Results
05/29/25 05/29/25 05/29/25
06:48 06:48 06:48
WBC 6.7 Cancelled
Hgb 10.6 L Cancelled
Hct 33.4 L
Plt Count
Sodium
Potassium
Chloride
Carbon Dioxide
BUN
Creatinine
Glucose
Calcium
05/29/25 05/29/25 05/29/25
06:48 06:48 11:00
WBC Pending
Hgb Pending
Hct Cancelled Pending
Plt Count 224 Cancelled Pending
Sodium 139
Potassium 4.6
Chloride 108 H
Carbon Dioxide 25
BUN 16
Creatinine 1.0
Glucose 239 H
Calcium 8.7
05/29/25
19:00
WBC Pending
Hgb Pending
Hct Pending
Plt Count Pending
Sodium
Potassium
Chloride
Carbon Dioxide
BUN
Creatinine
Glucose
Calcium
Vital Signs:
Vital Signs
Temp Pulse Resp BP Pulse Ox
98.9 F 70 18 151/78 98
05/29/25 08:00 05/29/25 08:00 05/29/25 08:00 05/29/25 08:00 05/29/25 08:00
I&O
05/28/25 05/29/25 05/30/25
06:59 06:59 06:59
Output Total 400 / 400
Balance -400 / -400
Review of Systems
-
History Source: Patient
Constitutional: Reports No Symptoms; Denies Fever or Chills
EENT: Denies Sore Throat or Runny Nose
Respiratory: Reports No Symptoms; Denies Cough or Trouble Breathing
Cardiac: Reports No Symptoms; Denies Chest Pain or Palpitations
Abdomen/GI: Reports No Symptoms; Denies Abdominal Pain, Nausea, Vomiting, Diarrhea, Constipated or Bloody Stools
Genitourinary: Reports No Symptoms; Denies Dysuria
Neuro: Denies Headache
Physical Exam
-
General: Well Developed, Well Nourished, No Apparent Distress, Comfortable and Obese
HEENT: Normocephalic and Atraumatic
Respiratory: Decreased Breath Sounds (On right lung latif); Negative Wheezes or Crackles
Cardiac: Regular Rhythm and S1/S2; Negative Murmur
GI: Soft, Nontender, Nondistended and Normal Bowel Sounds
Musculoskeletal: No Clubbing and No Edema
Skin: Warm and Dry; Negative Rash
Neuro: Awake and Alert
[2025-05-29 10:30] LABS: Glucose - Point of Care 261 mg/dl (70-99)
[2025-05-29] MEDS: NOVOLIN N vial 0.1 UNITS SC (10:32)
[2025-05-29 10:50] LABS: Hematocrit 34.8 % (39.0-52.0); Hemoglobin 10.8 g/dL (13.0-18.0); Mean Corp Hgb Conc. 31.0 g/dL (33.0-37.0); Mean Corpuscular Volume 96.7 fL (80.0-94.0); Platelet Count 223 10^3/uL (130-400); Red Cell Dist. Width 13.9 % (11.5-14.5)
[2025-05-29 12:28] LABS: Glucose - Point of Care 255 mg/dl (70-99)
[2025-05-29] MEDS: NOVOLOG FLEXPEN-LOW RESISTANCE 3 UNITS SC (13:55)
--- NOTE | 2025-05-29 15:03 | CM ---
Patient lives alone and plan is for patient to return to home alone when stable.
Plan; Home at discharge.
--- NOTE | 2025-05-29 15:39 | W.DCSUMMARY ---
Discharge Summary
Discharge Data
Date of Admission: 05/28/25
Date of Discharge: 05/29/25
-
Pending Results: No
Hospital Course
Discharging Physician :
Dr. Corey
Dr. Garza
Disposition : Home
Primary care physician : Please send copy to Thong Harvey MD
Principal Discharge diagnosis :
GI bleed
Chronic Discharge diagnosis :
Vol-wtxwldj-ixjnkllia diabetes
Essential hypertension
Hyperlipidemia
Gout
BPH
Hospital Course :
Mr. Bergeron is a 79yo presents with distant Hx of PUD, NIDDM, HTN, hyperlipidemia, anxiety, gout, UTI, BPH, renal stones, left hip replacement, b/l TKR, back surgery, spinal stimulator with recent work up for chronic diarrhea with Dr. Aldana
presenting with rectal bleeding that started night 05/27. He reports no inciting event that he can remember gtlzdc-immdjo-xycbajz stools last night. He went to sleep hoping that it might go away but had another episode of maroon-colored stools in
the morning. He has had a several month long history of diarrhea for which he was seen by GI doctor. Outpatient GI testing has not yielded any clear diagnosis for his chronic diarrhea. He has had multiple episodes of incontinence over the past 2
months and has used Imodium when going out in public to reduce the episodes. The Imodium has been helping. He had a colonoscopy 1 month ago that found several polyps but were ultimately benign. He has also had a distant EGD which showed a healing
ulcer. He does report taking NSAIDs daily without fluid due to arthritis of the hands. He has never had any issues with NSAIDs in the past. In the ED patient received IV fluids and IV PPIs, hemoglobin was 11.7 and he was AFVSS, he was admitted
for GI bleed workup. GI was consulted who scheduled a EGD, EGD on 05/29 was unremarkable and found no signs of active bleeding or stigmata of bleeding. Per GI cause of bleed possibly small bowel versus colonic bleed from recent colonoscopy
recommended 40 mg pantoprazole for 4 weeks and outpatient follow-up. In the hospital his A1c was measured to be 10.2 percent, received counseling on uncontrolled diabetes patient not amenable to taking insulin but amenable to increasing
pioglitazone to 15 mg twice daily and outpatient follow-up with his PCP. GI deemed patient stable for discharge repeat H&H showed stable hemoglobin at 10.8 with hypertensive BP but otherwise stable vital signs.
Important imaging findings :
05/10/2025 CT enterography (not done during this hospitalization):
IMPRESSION:
1. No bowel obstruction. No abnormal focal inflammatory process of the bowel identified. Moderate volume of stool throughout the colon. There is liquid stool and fat attenuation stool within the colon, findings that can be seen in association with
malabsorption. There is diverticulosis without diverticulitis.
2. Severe hepatic fatty infiltration.
3. Cholelithiasis.
4. Bilateral nonobstructive nephrolithiasis.
5. Left renal 1.2 cm rounded lesion which shows higher than simple fluid attenuation as detailed above. Possible hyperdense/hemorrhagic cyst. Small solid mass not definitively excluded. Could be further evaluated with follow-up renal ultrasound.
6. Enlarged prostate gland with nodular projection along the undersurface of the urinary bladder.
Procedure findings :
05/29/2025 EGD:
Findings:
- The Z-line was regular.
- A small hiatal hernia was present.
- Patchy mildly erythematous mucosa without bleeding was found in
the gastric antrum and in the gastric body.
- A few small sessile polyps with no bleeding and no stigmata of
recent bleeding were found in the gastric fundus and in the gastric
body.
- The first portion of the duodenum, second portion of the duodenum
and third portion of the duodenum were normal.
Discharge Plan
-
Patient Disposition: Home (Routine Discharge)
Discharge Diagnosis/Procedures: GI bleed-melena
Gwu-czqwtaw-vzrwotnor diabetes
Essential hypertension
Hyperlipidemia
Gout
BPH
Condition: Good
Diet: Diabetic, Carb Controlled
Activity: As tolerated
Driving Restrictions: As prior to admission
Bathing Restrictions: None
Activity Restrictions/Additional Instructions:
If no reason for diarrhea found on GI workup consider discontinuing metformin and changing it to another medicine to see if diarrhea gets better.
Please send copy to PCP
Referrals:
Thong Harvey DO [Family Provider, Family Practice] - in less than 1 week
Mike Aldana MD [Active, Gastroenterology] - 06/26/25 9:00 am
Prescriptions:
Continued
multivitamin Tablet
1 tab PO DAILY
amlodipine [Norvasc] 5 mg Tablet
5 mg PO DAILY
allopurinol 100 mg Tablet
100 mg PO DAILY
tamsulosin [Flomax] 0.4 mg Capsule
0.4 mg PO DAILY
metformin 1,000 mg Tablet
1,000 mg PO QPM
benazepril 20 mg Tablet
20 mg PO QPM
pravastatin 20 mg Tablet
20 mg PO QPM
finasteride 5 mg Tablet
5 mg PO QPM
Changed
pioglitazone 15 mg Tablet
15 mg PO BID Qty: 60 0RF
pantoprazole [Protonix] 20 mg Tablet,Delayed Release (Dr/Ec)
40 mg PO DAILY Qty: 30 0RF
Discharge Orders:
Discharge Patient (As Directed); Ordered 05/29/25
Ordered By: Jose G Garza
Discharge Date and Time
Print Language: [place]
[2025-05-29 16:00] VITALS: BP 133/73
[2025-05-29] MEDS: ZESTRIL 20 MG PO (16:47)
[2025-05-29] MEDS: PROSCAR 5 MG PO (16:47)
[2025-05-29] MEDS: PRAVACHOL 20 MG PO (16:48)
[2025-05-29 17:01] LABS: Glucose - Point of Care 185 mg/dl (70-99)
== END 2025-05-29 17:38 | disposition home or self-care (01) | DRG 379 ==
LOC: 4 WEST ACU 15:25
PROVIDERS: Internal Medicine; Nurse Practitioner Adult Health; Student in an Organized Health Care Education/Training Program; ADMITTING PHYSICIAN Hospitalist; EMERGENCY PHYSICIAN Emergency Medicine; FAMILY PHYSICIAN Family Medicine
PROC: 0DJ08ZZ Inspection of Upper Intestinal Tract, Via Natural or Artificial Opening Endoscopic (ICD-10-PCS; 2025-05-29)
DX: K92.1 Melena (principal); E11.9 Type 2 diabetes mellitus without complications; D17.9 Benign lipomatous neoplasm, unspecified; E66.9 Obesity, unspecified; Z68.34 Body mass index [BMI] 34.0-34.9, adult; E78.00 Pure hypercholesterolemia, unspecified; F41.9 Anxiety disorder, unspecified; I10 Essential (primary) hypertension; M10.9 Gout, unspecified; N40.0 Benign prostatic hyperplasia without lower urinary tract symptoms; K44.9 Diaphragmatic hernia without obstruction or gangrene; K31.7 Polyp of stomach and duodenum; K31.89 Other diseases of stomach and duodenum; K57.30 Diverticulosis of large intestine without perforation or abscess without bleeding; M19.90 Unspecified osteoarthritis, unspecified site; Z79.1 Long term (current) use of non-steroidal anti-inflammatories (NSAID); Z79.899 Other long term (current) drug therapy; Z87.891 Personal history of nicotine dependence
CPT/HCPCS: 80048; 80053; 82962; 83036; 85025; 85027; 85610; 85730; 86850; 86900; 86901; 96361; 96374; 99284